=== PATIENT | male | born 1950 | race Caucasian/White ===

== ENCOUNTER → 2016-11-09 | Outpatient (CLI) | payer OTHER ==
[~2016-11-09] VITALS: Ht 170.2 cm; Wt 90.7 kg
[~2016-11-09] MED LIST: ACTOS 30 MG TAB30 MG PO; AMARYL4 MG PO; ASPIR 8181 MG PO; BREO ELLIPTA 11 EACH IH; BYSTOLIC 5 MG5 M1 PO; CENTRUM SILVER1 EAC2 PO; DIOVAN160 MG PO; FLONASE 0.05%50 MCG NASAL; GLUCOPHAGE XR500 MG PO; IRON325 PO; LIPITOR40 MG PO; PRILOSEC 20 MG20 MG PO; SINGULAIR 10 MG10 M1 PO; TRULICITY1.5 MG/0.5 SQ
--- NOTE | ~2016-11-09 | P ---
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 PREOPERATIVE DIAGNOSIS: Allen's esophagus with low-grade dysplasia. POSTOPERATIVE DIAGNOSES: 1. Short segment Allen esophagus. 2. Very questionable 2-3 mm nodule, distal esophagus. 3. Erythematous gastritis. MEDICATIONS: Deep sedation with propofol per anesthesia. SPECIMEN: None. ESTIMATED BLOOD LOSS: None. PROCEDURE: EGD with radiofrequency ablation of Allen mucosa. FINDINGS: Prior to propofol sedation, procedure of EGD and radiofrequency ablation was discussed with the patient as well as potential risks and its complications. He indicates he understands and desires to proceed. DESCRIPTION OF PROCEDURE: With the patient in left lateral decubitus position, the [employer] video endoscope was inserted in the cervical esophagus under direct vision without difficulty. Examination of this organ through its entire length revealed normal esophageal mucosa down in the squamocolumnar junction. Squamocolumnar junction was somewhat irregular as previously noted by Dr. Vieyra. It was within 2 cm top of the gastric folds and this was a short segment Allen esophagus. Mucosa appeared to be flat. No ulcers or erosions were seen. A significant hiatus hernia was not seen. Scope was advanced into the stomach, which was examined on end view as well as retroflexed views. There was erythematous gastritis. It is noted previous biopsies were negative for H. pylori. Biopsies were not repeated. Upon retroflexion, no mass lesions were seen. The pylorus, duodenal bulb and postbulbar sweep were inspected and noted to be within normal limits. The scope was then withdrawn back in the esophagus. The Allen mucosa was again inspected. It was decided to go ahead and treat with radiofrequency ablation today. The mucosa was rinsed with a Mucomyst [facility] [address] [place] [address] PROCEDURE REPORT Name: FAYE HERRERA Room #: REG CL Vlad.#: [id number] Admission: 11/09/16 Attend Phys: Donn Bran MD Discharge: Date of : 50 Report #: [id number] solution. The Mucomyst solution was aspirated from the esophagus and stomach. The scope was withdrawn and fitted with the 90 radiofrequency ablation device and scope and device were inserted in tandem into the esophagus. We then treated in a circumferential fashion around the squamocolumnar junction. A total of 6 sites were treated with 2 applications of 40 ramires per cm2 at 12 joules per cm2. The scope and device were withdrawn. The scope was removed and cleaned and the cleaning chain was placed on the end of the scope which was reinserted and coagulant was scraped from the esophageal wall. The scope was one more time withdrawn refitted with the ablation device and once again reinserted. On this occasion, a total of 7 areas were treated with 2 applications of each. A total of 26 applications were applied today. It is also noted that there were several small squamous islands just above the squamocolumnar junction. These were treated as well. However, after ablation one 2-3 mm area was slightly elevated. Initially, the mucosa appeared flat. This area was treated as well. After treatment, scope was withdrawn. The patient tolerated the procedure well. CONDITION OF THE PATIENT UPON DISCHARGE: Following procedure, the patient drowsy and arousable. He will be discharged home when fully ambulatory. INSTRUCTIONS TO THE PATIENT AND FAMILY AT THE TIME OF DISCHARGE: Allen's mucosa treated as described above. We will have the patient continue twice daily PPI. We will also add sucralfate suspension. He may use hydrocodone elixir as needed for pain. We also give him GI cocktail as well. We will have him return in 8 weeks for reinspection, reinspection of either biopsy or further treatment of his Allen esophagus. By: [id number] Donn Bran MD /eric
--- NOTE | ~2016-11-09 | EKG ---
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
== END ==
LOC: GI 08:34
DX: K22.710 Barrett's esophagus with low grade dysplasia (principal); K29.60 Other gastritis without bleeding; Z87.891 Personal history of nicotine dependence; J43.9 Emphysema, unspecified; J45.909 Unspecified asthma, uncomplicated; D64.9 Anemia, unspecified; K21.9 Gastro-esophageal reflux disease without esophagitis; M19.90 Unspecified osteoarthritis, unspecified site; I10 Essential (primary) hypertension; E11.9 Type 2 diabetes mellitus without complications; Z95.1 Presence of aortocoronary bypass graft
CPT/HCPCS: 62110

== ENCOUNTER → 2017-01-11 | Outpatient (CLI) | payer OTHER ==
[~2017-01-11] VITALS: Ht 170.2 cm; Wt 88.5 kg
--- NOTE | ~2017-01-11 | S ---
[facility] [address] [place] [address] SURGICAL PATH RPT PROCEDURE Name: FAYE HERRERA Room #: REG YONATHAN Reyes#: [id number] Admission: 01/11/17 Date of : 50 Discharge: Report #: [id number] Path Case #: [id number] PATHOLOGY REPORT DRAFT COLLECTION DATE: 01/11/2017 RECEIVED DATE: 01/11/2017 SPECIMEN(S) RECEIVED: A.Bx of GE junction B.Bx of distal esophagus
--- NOTE | ~2017-01-11 | P ---
[facility] [place] [address] PROCEDURE REPORT Name: FAYE HERRERA [facility] [id number] Admission: 01/11/17 Attend Phys: Donn Bran MD Discharge: Date of : 50 Report #: [id number] THIS REPORT FOR: //name// CC: Donn Currie MD DATE OF SERVICE: 01/11/2017 BRIEF HISTORY: The patient is a 66-year-old male with a history of Allen esophagus with low-grade dysplasia. He was treated about 2 months ago with radiofrequency ablation of his distal esophagus. PREOPERATIVE DIAGNOSIS: History of Allen esophagus as well as low-grade dysplasia, treated. POSTOPERATIVE DIAGNOSES: 1. History of Allen esophagus with previous treatment. 2. Erythematous gastritis. MEDICATIONS: Deep sedation with propofol per anesthesia. SPECIMEN: 1. Biopsies along gastroesophageal junction, rule out Allen's. 2. Biopsy of squamous mucosa, distal esophagus, rule out Allen. ESTIMATED BLOOD LOSS: 3 mL. PROCEDURE: EGD with biopsy. FINDINGS: Prior to propofol sedation, procedure of upper endoscopy and possible treatment with radiofrequency ablation was discussed with the patient as well as potential risks and its complications. He indicates he understands and desires to proceed. DESCRIPTION OF PROCEDURE: With the patient in left lateral decubitus position, the [employer] video endoscope was inserted in the cervical esophagus under direct vision without difficulty. Examination of this organ through its entire length revealed normal esophageal mucosa down the squamocolumnar junction. The squamocolumnar junction was inspected. The squamocolumnar junction was slightly irregular. However, on examination today, no islands were seen. The mucosa was completely flat. Elevated lesions were not seen. There was a questionable small nodule which was treated at his last session and that was not seen today. Squamocolumnar junction appeared to be right at the top of the gastric folds. It was felt that Allen's had been treated; therefore, multiple biopsies were obtained. Scope was advanced in the stomach, was examined on end view as well [facility] [address] [place] [address] PROCEDURE REPORT Name: FAYE HERRERA Room #: REG YONATHAN Chu.#: [id number] Admission: 01/11/17 Attend Phys: Donn Bran MD Discharge: Date of : 50 Report #: [id number] as retroflexed views. There was erythematous gastritis noted in the past. Biopsies were not repeated. Upon retroflexion, no mass lesions were seen in the cardia. The pylorus, duodenal bulb and postbulbar sweep were inspected and noted to be within normal limits. At that point, the scope was slowly withdrawn and careful circumferential views confirmed the above findings. The patient tolerated the procedure well. CONDITION OF THE PATIENT UPON DISCHARGE: Following procedure, the patient drowsy, aroused, conversant and will be discharged to home when fully ambulatory. INSTRUCTIONS TO THE PATIENT AND FAMILY AT THE TIME OF DISCHARGE: I do not see definite evidence of Allen mucosa today. The mucosa is completely flat. Biopsies were obtained. We will follow up on biopsies. If there is no evidence of Allen mucosa, we will have him return in 6 months for repeat endoscopy and biopsy. However, if Allen mucosa is present, we will have him return in about 4 weeks for treatment session. He should continue his proton pump inhibitor. Again, we will make recommendations after review of the biopsies. By: [id number] Donn Bran MD /nt
== END | disposition home or self-care (01) ==
LOC: GI 07:49
DX: K22.710 Barrett's esophagus with low grade dysplasia (principal); Z87.891 Personal history of nicotine dependence; J44.9 Chronic obstructive pulmonary disease, unspecified; J43.9 Emphysema, unspecified; J45.909 Unspecified asthma, uncomplicated; G47.33 Obstructive sleep apnea (adult) (pediatric); E78.00 Pure hypercholesterolemia, unspecified; D64.9 Anemia, unspecified; Z95.1 Presence of aortocoronary bypass graft
CPT/HCPCS: 62110; 62900